=== PATIENT | female | born 2000 | race Asian ===

== ENCOUNTER 2025-04-27 11:22 | Day surgery (SDC) | payer OTHER, SELFPAY ==
--- NOTE | 2025-04-27 10:46 | EXP.HP ---
History of Present Illness *Admission Date: 04/27/25 *Reason for visit:: Constipation/rectal bleeding *History of present illness: Ms. Yee is a 24-year-old female who is here for bright red rectal bleeding, rectal pain and incomplete defecation. The examination is deemed medically necessary for sigmoidoscopy. The patient has been seen, interviewed and examined prior to the procedure by both myself and the anesthesia provider. [facility] Disclaimer: The information contained in this section may have been updated after the patient was seen, as this information can be updated by other users. Medical History Constipation Brain tumor Surgical History History of ovarian cystectomy S/P ACL surgery Family History Other Family history unknown Social History Smoking Status: Never smoker alcohol intake: current alcohol intake frequency: holidays/special occasions only substance use type: denies use current occupational status: employed Travel in the last 8 weeks?: Inside the [place] Have you lived/traveled outside [place] in past 30 days?: No Contact w/someone who lives/traveled outside [place] past 30 days?: No Exposure to someone with infectious disease in past 14 days?: No Do you have a fever (greater than 100.4 F or 38 C)?: No Have you tested positive for COVID-19?: No Exposed to someone with COVID-19 in past 14 days?: No Do you have a sore throat?: No Do you have a cough?: No Do you have any weakness?: No Do you have any diarrhea?: No Are you experiencing any unusual bleeding?: No Do you have any muscle aches/pain?: No Do you have any abdominal pain?: No Are you experiencing loss of taste or smell?: No Review of Systems Review of Systems Review of systems (narrative): Negative *Cardiovascular Comments: Negative *Gastrointestinal Comments: Negative *Genitourinary Comments: Negative *Musculoskeletal Comments: Negative *Neurologic Comments: Negative Meds Home Medications and Allergies Home Medications ?Medication ?Instructions ?Recorded ?Confirmed ?Type bupropion HCl 150 mg 24 hr tablet, 150 mg PO DAILY 12/19/24 04/27/25 History extended release cetirizine 10 mg capsule (Zyrtec) 10 mg PO DAILY PRN Allergy Symptoms 12/19/24 04/27/25 History hydrocortisone acetate 25 mg 25 mg DE HS #12 ea 12/19/24 04/27/25 Rx rectal suppository (Anusol-HC) lactobacillus combination no.4 3 3,000 mmu cells PO DAILY 12/19/24 04/27/25 History billion cell capsule (Probiotic) lisdexamfetamine 50 mg capsule 50 mg PO DAILY 12/19/24 04/27/25 History (Vyvanse) meloxicam 15 mg tablet 15 mg PO DAILY 12/19/24 04/27/25 History norgestimate 0.25 mg-ethinyl 1 tab PO DAILY 12/19/24 04/27/25 History estradiol 0.035 mg tablet (Sprintec (28)) sodium,potassium,mag sulfates 17.5 See Rx Instructions PO .COMPLEX 04/14/25 04/25/25 Rx gram-3.13 gram-1.6 gram oral soln #354 mL (Suprep Bowel Prep Kit) New Prescriptions to Start Prescriptions: Allergies Allergy/AdvReac Type Severity Reaction Status Date / Time No Known Allergies Allergy Verified 04/27/25 11:43 Exam *Routine HEENT Exam Head: Present normocephalic Eye: Present EOMI and PERRL ENT: Present mucous membranes moist *Routine Neck Exam Neck: Present supple *Routine Respiratory Exam Respiratory: Present CTA bilaterally *Routine Cardiovascular Exam Cardiovascular: Present RRR *Routine Abdominal Exam Abdominal: Present soft and normoactive bowel sounds; Absent tenderness *Routine Rectal Exam Rectal:: deferred *Routine Genitalia Exam Genitalia:: deferred *Routine Extremities Exam Extremities: Absent cyanosis, clubbing or edema *Routine Skin Exam Skin: Present warm; Absent rash *Routine Neurological Exam Neurological: Present alert and oriented X3 Assessment and Plan *Assessment and plan (1) Rectal bleeding: Status: Acute Category: Medical Code(s): K62.5 - Hemorrhage of anus and rectum (2) Rectal pain: Status: Acute Category: Medical Code(s): K62.89 - Other specified diseases of anus and rectum (3) Incomplete defecation: Status: Acute Category: Medical Code(s): R15.0 - Incomplete defecation (4) Hemorrhoids: Status: Acute Category: Medical Code(s): K64.9 - Unspecified hemorrhoids Plan A/P: 1. Bright red rectal bleeding with rectal pain, incomplete defecation and hemorrhoids is the preprocedural diagnosis. The patient will be anesthetized/sedated using MAC sedation. The patient has been seen and examined. Cardiac and lung assessment prior to the examination is stable. Proceed with planned flexible sigmoidoscopy.
[2025-04-27 11:41] VITALS: BMI 27.4
[2025-04-27 11:43] VITALS: BP 125/74; PULSE 80; RESP 17; TEMP 36.1; O2SAT 100
[2025-04-27] MEDS: LACTATED RINGERS 1000ML 1,000 ML 50 ML IV (11:49)
--- NOTE | 2025-04-27 11:55 | P.PNANES_ITS ---
[facility] Disclaimer: The information contained in this section may have been updated after the patient was seen, as this information can be updated by other users. Medical History Constipation Brain tumor Surgical History History of ovarian cystectomy S/P ACL surgery Family History Other Family history unknown Social History Smoking Status: Never smoker alcohol intake: current alcohol intake frequency: holidays/special occasions only substance use type: denies use current occupational status: employed Travel in the last 8 weeks?: Inside the [place] Have you lived/traveled outside [place] in past 30 days?: No Contact w/someone who lives/traveled outside [place] past 30 days?: No Exposure to someone with infectious disease in past 14 days?: No Do you have a fever (greater than 100.4 F or 38 C)?: No Have you tested positive for COVID-19?: No Exposed to someone with COVID-19 in past 14 days?: No Do you have a sore throat?: No Do you have a cough?: No Do you have any weakness?: No Do you have any diarrhea?: No Are you experiencing any unusual bleeding?: No Do you have any muscle aches/pain?: No Do you have any abdominal pain?: No Are you experiencing loss of taste or smell?: No [facility] Anesthesia Checklist Patient Identification Patient Identification: Arm Band Structural Data Admitted From: Home Planned Operative Procedure/s: Flexible Sigmoidoscopy Consent for Planned Operative Procedure(s) Verified: Yes Verified Documents: Surgical Consent and History and Physical NPO Status Verified Time NPO: 00:00 Additional verifications Anesthesia Reactions: No Airway Assessment Mallampati Score:: Class II C-Spine Mobility Assessed: Yes TMJ Mobility Assessed: Yes Dentition: Good Dentition Neurological Assessment Level of Consciousness: Awake, Alert and Appropriate Anesthesia Plan Anesthesia Risk discussed: Yes Anesthesia Plan: Verified ASA Class: I Anesthesia Type: General
[2025-04-27 12:01] LABS: Urine Pregnancy, HCG Qual. Negative (Negative)
--- NOTE | 2025-04-27 12:14 | P.PCN_ITS ---
[facility] Procedure Note Date: 04/27/25 Time: 12:23 Procedure Note:: Flexible Sigmoidoscopy Procedure Report: Sigmoidoscopy with monopolar ablation/coagulation of internal hemorrhoids Endoscopist: Amari Fierro II, MD Referring physician: None Date of Procedure: April 27, 2025 Equipment: Olympus 180 variable stiffness pediatric colonoscope Sedation: MAC sedation Indication: Ms. Yee is a 24-year-old female who is here for diagnostic sigmoidoscopy secondary to bright red rectal bleeding almost daily with anorectal pain with defecation. She is also struggling with incomplete defecation/outlet dysfunction constipation. She has been on MiraLAX plus fiber. She has tried Anusol suppositories. She had a normal colonoscopy in May 2021. She does note that with her bowel movements she will occasionally see only blood in the commode. Her bowel movements do vary in consistency. She does get bloating and some lower abdominal discomfort. Procedure: Prior to the procedure, a history and physical exam was performed, and patient's medications and allergies were reviewed. The risks, benefits and alternatives of the sedation and procedure were discussed with the patient. All questions were answered and informed consent was obtained. The patient was brought to the procedure room. Patient identification and proposed procedure were verified by the physician and the nurse. The patient was placed in a left lateral decubitus position and the scope was passed under direct vision. Throughout the procedure, the patient's blood pressure, pulse, and oxygen saturations were monitored continuously. The colonoscopy was accomplished without difficulty. The patient tolerated the procedure well. Findings: On digital rectal examination there was normal to slightly increased anorectal tone. There were no fissures or fistulas. The endoscope was then advanced through the anal canal into the rectum. The scope was advanced to 30 cm. Upon withdrawal, the sigmoid, rectosigmoid and rectum are normal. Upon retroflexion within the rectum there were grade 2 internal hemorrhoids. The venous columns of hemorrhoids were evaluated and ablated/coagulated using monopolar ablation. Impression: 1. Grade 2 internal hemorrhoids status post monopolar ablation/coagulation 2. Mildly increased anal rectal tone Plan: The patient is having bleeding from the internal hemorrhoids. She did not have any appreciable anal fissure upon careful expection. I do feel that she has outlet dysfunction constipation with some anorectal spasm with proctalgia. I am going to recommend topical nitroglycerin ointment and pelvic floor PT. I will discuss the findings with the patient and family.
[2025-04-27 12:25] VITALS: BP 103/60; PULSE 69; RESP 16; TEMP 36.2; O2SAT 99
[2025-04-27 12:35] VITALS: BP 110/73; PULSE 65; RESP 16; TEMP 36.2; O2SAT 100
[2025-04-27 12:45] VITALS: BP 115/71; PULSE 70; RESP 18; TEMP 36.2; O2SAT 100
[2025-04-27 12:55] VITALS: BP 113/66; PULSE 70; RESP 18; TEMP 36.2; O2SAT 99
== END 2025-04-27 13:15 | disposition home or self-care (01) ==
PROVIDERS: Visit Provider Internal Medicine Gastroenterology
PROC: 0DJD8ZZ Inspection of Lower Intestinal Tract, Via Natural or Artificial Opening Endoscopic (ICD-10-PCS; CPT 45330; principal; 2025-04-27 13:00)
DX: K64.1 Second degree hemorrhoids (principal); Z79.899 Other long term (current) drug therapy
CPT/HCPCS: 45346; 81025; J2003; J2704; J7120